=== PATIENT | male | born 1985 | race Two or more races ===

== ENCOUNTER 2018-12-15 14:05 | Day surgery (SDC) | payer OTHER ==
[2018-12-11 16:49] VITALS: BMI 32.2
[~2018-12-15 14:05] MED LIST: ACETAMINOPHEN 325 MG TABLET (FP) PO PRN; ONDANSETRON 4 MG/2 ML VIAL IVPUSH PRN; oxyCODONE HCL 5 MG TABLET PO PRN
[2018-12-15] MEDS ORDERED: MIDAZOLAM HCL 2 MG/2 ML SINGLE DOSE VIAL ONE ×2 (15:23→15:36)
--- NOTE | 2018-12-15 16:05 | OP ---
Operative Note - Note: Operative Date: 12/15/18 Pre-Operative Diagnosis: Left renal stone Operation: Left ESWL Findings: 9 mm lower pole renal stone Post-Operative Diagnosis: Same as Pre-op Surgeon: Rodolfo Echols Anesthesia: Fractional Estimated Blood Loss (mls): 0 Drains, Volume Out (mls): 0 Operative Report Dictated: Yes
[2018-12-15 18:04] VITALS: BP 121/66; PULSE 90; TEMP 97.5
--- NOTE | 2018-12-15 21:02 | OP ---
DATE OF OPERATION: 12/15/2018 PREOPERATIVE DIAGNOSIS: Left renal stone. POSTOPERATIVE DIAGNOSIS: Left renal stone. PROCEDURE: Left extracorporeal shock wave lithotripsy. ATTENDING: Rodolfo Solis MD ANESTHESIA: Fractional. DESCRIPTION OF OPERATION: Patient was brought in the operating room, placed in supine position on the operating room table. Ultrasonography and fluoroscopy were performed. A 9-mm left lower pole stone was identified. Anesthesia and preoperative antibiotics were administered. Shock wave lithotripsy was then performed. Excellent fragmentation of the stone was noted under real-time ultrasonography and fluoroscopy. No complications were noted. Cece [id number]
== END 2018-12-15 17:00 | disposition home or self-care (01) ==
LOC: JASU-SURG 14:05
PROVIDERS: ATTEND Urology
PROC: 0TF4XZZ Fragmentation in Left Kidney Pelvis, External Approach (ICD-10-PCS; principal; 2018-12-15 18:30)
DX: N20.0 Calculus of kidney (principal)

== ENCOUNTER 2019-09-21 10:44 | Day surgery (SDC) | payer OTHER ==
[2019-09-18 17:28] VITALS: BMI 28.3
[2019-09-21] MEDS ORDERED: PROPOFOL 20 ML ONE ×2 (14:34)
[2019-09-21] MEDS ORDERED: MIDAZOLAM HCL 2 MG/2 ML SINGLE DOSE VIAL ONE (14:34)
--- NOTE | 2019-09-21 15:14 | OP ---
Operative Note - Note: Operative Date: 09/21/19 Pre-Operative Diagnosis: Left Renal stone Operation: Left ESWL Findings: 10 mm mid pole left renal stone Post-Operative Diagnosis: Same as Pre-op Anesthesia: Fractional Estimated Blood Loss (mls): 0 Drains & Tubes with Location: Left JJ stent Operative Report Dictated: Yes
[2019-09-21 15:38] VITALS: TEMP 97.8
[2019-09-21 16:11] VITALS: BP 114/71; PULSE 64
--- NOTE | 2019-09-22 09:30 | OP ---
DATE OF OPERATION: 09/21/2019 PREOPERATIVE DIAGNOSIS: Left renal stone. POSTOPERATIVE DIAGNOSIS: Left renal stone. PROCEDURE: Left extracorporeal shockwave lithotripsy. ATTENDING: Aneta Nelson MD ANESTHESIA: Fractional. DESCRIPTION OF OPERATION: The patient was brought in the operating room and placed in the supine position on the operating room table. Ultrasonography and fluoroscopy were performed. A 10-mm left midpole stone was identified. The patient was also noted to have an indwelling left ureteral stent. At this point anesthesia and preoperative antibiotics were administered; 3000 impulses at 18 joules of power were administered to the stone with excellent fragmentation noted under realtime ultrasonography and fluoroscopy. No complications were noted. Patient tolerated the procedure very well. ANETA NELSON M.D. /[id number]
== END 2019-09-21 16:00 | disposition home or self-care (01) ==
LOC: JASU-SURG 10:44
PROVIDERS: ATTEND Urology
PROC: 0TF4XZZ Fragmentation in Left Kidney Pelvis, External Approach (ICD-10-PCS; principal; 2019-09-21 15:00)
DX: N20.0 Calculus of kidney (principal)

== ENCOUNTER 2024-08-05 22:08 | Emergency (ER) | payer OTHER ==
[2024-08-05 22:31] VITALS: BP 121/83; PULSE 86; RESP 18; TEMP 98.3; BMI 29.2
== END 2024-08-05 23:51 | disposition home or self-care (01) ==
LOC: JER 22:08
PROC: 0J943ZZ Drainage of Right Neck Subcutaneous Tissue and Fascia, Percutaneous Approach (ICD-10-PCS; principal; 2024-08-05)
DX: L02.11 Cutaneous abscess of neck (principal)
CPT/HCPCS: 99283-25